=== PATIENT | male | born 1965 | race Hispanic/Latino ===

== ENCOUNTER 2023-04-15 09:15 | Emergency (ER) | payer SELFPAY ==
[2023-04-15 09:57] LABS: #Basophils 0.1 thou/uL (0.0-0.2); #Eosinphils 0.2 thou/uL (0.0-0.7); #Lymphocytes 1.2 thou/uL (1.20-3.40); #Monocytes 0.7 thou/uL (0.11-0.59); #Neutrophils 4.9 thou/uL (1.40-6.50); %Basophils 0.9 % (0.0-1.0); %Eosinophils 3.1 % (0.0-10.0); %Lymphocytes 16.8 % (21.0-51.0); %Monocytes 10.4 % (0.0-10.0); %Neutrophils 68.9 % (42.0-75.0); Hematocrit 40.6 % (42.0-52.0); Hemoglobin 13.3 g/dL (14.0-18.0); Mean Corpuscular HGB CONC 32.6 g/dL (32.0-36.0); Mean Corpuscular Hemoglobin 28.2 pg (27.0-31.0); Mean Corpuscular Volume 86.3 fl (78.0-98.0); Platelet Count 135 10x3/uL (130-400); RBC Distribution Width 12.6 % (11.5-14.5); White Blood Cell (WBC) Count 7.1 10x3/uL (4.8-10.8)
[2023-04-15] MEDS ORDERED: HYDROcodone/Acetaminophen 5/325 mg Tablet ONE (10:01)
[2023-04-15 10:15] LABS: Troponin I Less than 0.010 ng/mL (< 0.028)
[2023-04-15 10:16] LABS: ALT (SGPT) 20 U/L (8-55); AST (SGOT) 16 U/L (5-34); Alkaline Phosphatase 83 U/L (40-110); Anion Gap 13 mmol/L (10-20); BUN (Urea Nitrogen) 26 mg/dL (8.4-25.7); Bilirubin, Total 0.9 mg/dL (0.2-1.2); Calc. Creatinine Clearance 0 mL/min (70-130); Calcium 9.5 mg/dL (7.8-10.44); Carbon Dioxide 24 mmol/L (22-29); Chloride 102 mmol/L (98-107); Estimated GFR 78; Globulin 3.4 g/dL (2.4-3.5); Glucose 228 mg/dL (70-105); Lipase 34 U/L (8-78); Magnesium 1.7 mg/dL (1.6-2.6); Potassium 4.3 mmol/L (3.5-5.1); Protein, Total 7.4 g/dL (6.0-8.3); Sodium 135 mmol/L (136-145)
[2023-04-15 12:12] LABS: Bilirubin Negative (Negative); Blood, Urine Trace (Negative); Clarity Clear (Clear); Glucose, Urine (Dipstick) 500 mg/dL (Negative); Ketone, Urine Negative (Negative); Leukocyte Negative (Negative); Nitrite Negative (Negative); Protein, Urine (Dipstick) Trace mg/dL (Neg-Trace); Specific Gravity, Urine 1.015 (1.005-1.030); Urobilinogen 0.2 mg/dL (Less than 2); pH, Urine 7.5 (5.0-9.0)
[2023-04-15 12:30] LABS: RBC/HPF 0-3 HPF (0-3)
== END 2023-04-15 12:55 | disposition home or self-care (01) ==
LOC: NAV ERS 09:15
DX: I48.91 Unspecified atrial fibrillation (principal); S16.1XXA Strain of muscle, fascia and tendon at neck level, initial encounter; E11.9 Type 2 diabetes mellitus without complications; I10 Essential (primary) hypertension; Z87.891 Personal history of nicotine dependence; X58.XXXA Exposure to other specified factors, initial encounter; Y99.0 Civilian activity done for income or pay
CPT/HCPCS: 71045; 80053; 81001; 83690; 83735; 83880; 84484; 85025; 93005

== ENCOUNTER 2023-04-28 20:04 | Emergency (ER) | payer SELFPAY ==
[2023-04-28] MEDS ORDERED: Pantoprazole 40 MG VIAL ONE (20:38)
[2023-04-28] MEDS ORDERED: Ondansetron PF 4 MG/2 ML Vial ONE (20:38)
[2023-04-28] MEDS ORDERED: Sodium Chloride 0.9% 1,000 ML ONE (20:38)
[2023-04-28] MEDS ORDERED: Morphine 4 MG/ML VIAL ONE (20:38)
[2023-04-28 20:51] LABS: #Basophils 0.1 thou/uL (0.0-0.2); #Lymphocytes 1.1 thou/uL (1.20-3.40); #Monocytes 0.8 thou/uL (0.11-0.59); #Neutrophils 7.5 thou/uL (1.40-6.50); %Basophils 0.7 % (0.0-1.0); %Eosinophils 0.5 % (0.0-10.0); %Lymphocytes 11.1 % (21.0-51.0); %Monocytes 8.4 % (0.0-10.0); %Neutrophils 79.3 % (42.0-75.0); Hematocrit 39.5 % (42.0-52.0); Hemoglobin 13.2 g/dL (14.0-18.0); Mean Corpuscular HGB CONC 33.3 g/dL (32.0-36.0); Platelet Count 174 10x3/uL (130-400); RBC Distribution Width 11.6 % (11.5-14.5); Red Blood Cell (RBC) Count 4.71 mill/uL (4.70-6.10); White Blood Cell (WBC) Count 9.5 10x3/uL (4.8-10.8)
[2023-04-28 21:06] LABS: ALT (SGPT) 19 U/L (8-55); AST (SGOT) 22 U/L (5-34); Albumin 4.4 g/dL (3.5-5.0); Alkaline Phosphatase 68 U/L (40-110); Anion Gap 18 mmol/L (10-20); BUN (Urea Nitrogen) 35 mg/dL (8.4-25.7); Bilirubin, Total 1.7 mg/dL (0.2-1.2); Calc. Creatinine Clearance 0 mL/min (70-130); Calcium 9.5 mg/dL (7.8-10.44); Carbon Dioxide 30 mmol/L (22-29); Chloride 75 mmol/L (98-107); Estimated GFR 24; Globulin 2.9 g/dL (2.4-3.5); Glucose 214 mg/dL (70-105); Lipase 17 U/L (8-78); Potassium 3.3 mmol/L (3.5-5.1); Protein, Total 7.3 g/dL (6.0-8.3); Sodium 120 mmol/L (136-145); Troponin I 0.013 ng/mL (< 0.028)
[2023-04-28] MEDS ORDERED: Morphine 2 MG/ML VIAL ONE (21:16)
[2023-04-28 22:06] LABS: Clarity Clear (Clear); Leukocyte Negative (Negative); Nitrite Negative (Negative); Protein, Urine (Dipstick) 30 mg/dL (Neg-Trace); Specific Gravity, Urine 1.015 (1.005-1.030); pH, Urine 7.5 (5.0-9.0)
[2023-04-28 22:07] LABS: Bacteria/HPF None Seen HPF (None Seen); Bilirubin Negative (Negative); Blood, Urine Small (Negative); CAUTI Indications for Culture Dysuria,urgency,freq; Glucose, Urine (Dipstick) 100 mg/dL (Negative); Ketone, Urine Trace mg/dL (Negative); RBC/HPF None Seen HPF (0-3); Squamous Epithelial None Seen HPF (0-3); Urine Culture Reflex No No; Urobilinogen 0.2 mg/dL (Less than 2); WBC/HPF None Seen HPF (0-3)
== END 2023-04-29 02:00 | disposition short-term general hospital (02) ==
LOC: NAV ERS 20:04
DX: N17.9 Acute kidney failure, unspecified (principal); E87.1 Hypo-osmolality and hyponatremia; R10.84 Generalized abdominal pain; I10 Essential (primary) hypertension; E11.9 Type 2 diabetes mellitus without complications
CPT/HCPCS: 74022; 74176; 80053; 80307; 81001; 83605; 83690; 84484; 85025; 93005; 96361; 96374; 96375; C9113; J2270; J2272; J2405; J7050